=== PATIENT | male | born 1965 ===

== ENCOUNTER 2025-06-29 15:40 | Outpatient (REF) | payer OTHER, SELFPAY ==
--- NOTE | ~2025-06-29 | MR_ITS ---
EXAMINATION: MR BRAIN WITHOUT THEN WITH IV CONTRAST HISTORY: NUMBNESS, MIGRAINE TECHNIQUE: Sagittal T1 and FLAIR, and axial T1, FLAIR, T2, gradient echo, and diffusion weighted MR images of the brain were obtained. Subsequently, axial, and coronal T1-weighted images were obtained after the administration of intravenous gadolinium. 9 mL Gadavist was administered. COMPARISON: There are no prior studies available for comparison. FINDINGS: The pituitary is normal in size. The cerebellar tonsils are normally located. A few scattered periventricular and subcortical white matter hyperintensities are noted on the FLAIR and T2-weighted images which are nonspecific. Noel/white differentiation is otherwise normal. There is no mass effect or midline shift. No intra or extra-axial fluid collections are identified. There are no foci of restricted diffusion. There is no abnormal contrast enhancement. Normal vascular flow voids are noted in the basilar and carotid arteries. There are polyps versus mucous retention cysts in the bilateral maxillary sinuses. There is mucosal thickening in the bilateral ethmoid sinuses. MR/MR head/brain wo/w con IMPRESSION: Scattered nonspecific white matter hyperintensities which can be seen in the setting of migraine. Differential diagnostic considerations include small vessel ischemic disease, Lyme disease, vasculitis, and demyelinating disease. Electronically signed by: Hans Barnett MD 06/30/2025 07:21 AM EDT
--- OUTSIDE RECORDS SUMMARY | 2025-06-29 15:43 | XMS_ITS | Clinical Summary ---
Author Organization [address] [place] [address] [place] [phone] Phone Care Team Providers Care Planer Feeder Name Role Phone Rebeca Hernandez MD Primary Care Provider Allergies Active Allergy Reactions Criticality Noted Date Comments Shellfish Derived Anaphylaxis High 01/07/2021 Medications blood-glucose meter kit 1 Kit by Does not apply route daily. 09/14/20 23 Active FREESTYLE LANCETS MISC 1 Each by Does not apply route daily. 09/14/20 23 Active blood sugar diagnostic (FreeStyle Lite Strips) test strip 1 Each by In Vitro route daily. 09/14/20 23 Active WHEAT DEXTRIN ORAL Take 4 g by mouth daily. 08/27/20 23 Active cholecalcifero l (VITAMIN D-3) 1,250 mcg (50,000 unit) capsule TAKE 1 CAPSULE BY MOUTH ONE TIME PER WEEK 02/02/20 23 Active EPINEPHrine (EpiPen 2-Benjamín) 0.3 mg/0.3 mL injection Inject 1 Device as directed as needed (anaphylaxis) . Use as directed 01/07/20 21 Active fluticasone propionate (FLONASE) 50 mcg/actuation nasal spray 2 Sprays by Nasal route daily. 11/03/20 21 Active hydrocortisone 2.5 % cream Apply locally twice a day 08/15/20 22 Active tamsulosin (FLOMAX) 0.4 mg 24 hr capsule Take 1 Capsule by mouth daily. Take 30 mins after same meal every day. 04/24/20 23 Active ketoconazole (NIZORAL) 2 % cream Apply topically 2 (two) times a day. 15 g 3 01/20/20 25 Active valsartan (DIOVAN) 80 mg tablet Take 1 tablet (80 mg total) by mouth 1 (one) time each day. 90 tablet 1 01/20/20 25 Active omeprazole (PriLOSEC) [address] capsule TOME BASSAM CAPSULA TODOS [place]OPEZ 90 capsule 1 03/25/20 25 Active pantoprazole (PROTONIX) 40 mg EC tablet TAKE 1 TABLET BY MOUTH EVERY DAY 90 tablet 06/05/20 25 Active pantoprazole (PROTONIX) 40 mg EC tablet TAKE 1 TABLET BY MOUTH EVERY DAY 90 tablet 04/06/20 25 025 Discontinued Active Problems Problem Noted Date Diagnosed Date Class 1 obesity with body ma ss index (BMI) of 30.0 to 30.9 in adult 02/15/2023 Orbital pain, right 08/18/2021 Sleep apnea 08/18/2021 Syncope, vasovagal 08/18/2021 Allergic reaction to allergen immunotherapy 12/27 Conjunctivitis, allergic, bilateral 01/07/2021 Dermatitis 01/07/2021 Mild intermittent asthma without complication Perennial allergic rhinitis 10/09/2018 HTN (hypertension) 08/15/2018 GERD (gastroesophageal reflux disease) 8 Overview (10/08/2024): H/o chemical gastritis Hyperlipidemia 04/23/2018 Vitamin D deficiency 12/31/2016 Chronic constipation 07/03/2016 Polycythemia 11/09/2015 Encounters Date Type Department Care Team Description 04/06/2025 Telephone Internal Medicine - [address] [phone] Rebeca Hernandez MD [place]: Fax antonio from Last 3 Months Surgical History Surgery Date Site/Laterality Comments BOWEL RESECTION PROCEDURE: HISTORICAL BOWEL RESECTION; COMMENT: hemicolectomy for diverticulitis CHOLECYSTECTOMY PROCEDURE: HISTORICAL CHOLECYSTECTOMY HERNIA REPAIR PROCEDURE: HISTORICAL HERNIA REPAIR/UMB Medical History Medical History Date Comments Chronic constipation 07/03/2016 DX:Chronic constipation GERD (gastroesophageal reflux disease) 8 DX:GERD (gastroesophageal reflux disease); COMMENT: H/o chemical gastritis HTN (hypertension) 08/15/2018 DX:HTN (hyper tension) Hyperlipidemia 04/23/2018 DX:Hyperlipidemi a Polycythemia 11/09/2015 DX:Polycythemia Vitamin D deficiency 12/31/2016 DX:Vitamin D deficiency History of diverticulitis 12/06/2017 DX:His tory of diverticulitis; COMMENT: H/o colectomy 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 8 DX: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, co ntrolled, with complications (CMS/HCC V24, CMS/HCC V28) DX:Diabetes mellitus type 2, controlled, with complications ([facility]) Social History Tobacco Use Types Packs/Day Years Used Date Smoking Tobacco: Never Smokeless Tobacco: Never Alcohol Use Standard Drinks/Week Comments Never 0 (1 standard drink = 0.6 oz pur e alcohol) Sex and Gender Information Value Date Recorded Sex Assigned at Not on file Legal Sex Male 8:02 AM EST Gender Identity Not on file Sexual Orientation Not on file Obstetrics History Last Filed Vital Signs Vital Sign Reading Time Taken Comments Blood Pressure 128/80 03/24/2025 3:43 PM EDT Pulse 62 03/24/2025 3:43 PM EDT Temperature 36.4 C (97.6 F) 03/24/2025 3:43 PM EDT Respiratory Rate - - Oxygen Saturation 98% 03/24/2025 3:43 PM EDT Inhaled Oxygen Concentration - - Weight 93.9 kg (207 lb) 03/24/2025 3:43 PM EDT Height 172.7 cm (5' 8 ) 01/20/2025 3:31 PM EST Body Mass Index 31.47 01/20/2025 3:31 PM EST Plan of Treatment Upcoming Encounters Date Type Department Care Team (Late st Contact Info) Description 07/20/2025 3:30 PM EDT Office Visit Internal Medicine - [place] [address] [facility] [address] [place] [address] Rebeca Hernandez MD [address] [facility] [address] [place] [address] Health Maintenance Due Date Last Done Comments DTaP,Tdap,and Td Vaccines (1 - Tdap) 1984 Pneumococcal Vaccine: 50+ Years (1 of 2 - PCV) 1984 Zoster Vaccines (1 of 2) 2015 Colorectal Cancer Screening: Colonoscopy 11/04/2022 HIV Screening 11/04/2022 Hepatitis C Screening 11/04/2022 Social Influencers of Health Screening 11/04/2022 COVID-19 Vaccine ( season) 2024 11/14/2022, 11/02/2021, 02/18/2021, Additional history exists Depression Screening 11/26/2024 RSV Immunization Adult Patients (1 - Risk 60-74 years 1-dose series) 2025 Influenza Vaccine (#1) 2025 Hypertension/CHF/CAD Annual BMP Blood Test 01/21/2026 01/21/2025, 09/14/2023 Cholesterol Screening (Lipid Panel) 01/21/2030 01/21/2025, 08/16/2022 HIB Vaccines Aged Out No longer eligi ble based on patient's age to complete this topic HPV Vaccines Aged Out No longer eligi ble based on patient's age to complete this topic Hepatitis A Vaccines Aged Out No long er eligible based on patient's age to complete this topic Hepatitis B Vaccines Aged Out No long er eligible based on patient's age to complete this topic IPV Vaccines Aged Out No longer eligi ble based on patient's age to complete this topic MMR Vaccines Aged Out No longer eligi ble based on patient's age to complete this topic Meningococcal ACWY Vaccine Aged Out N o longer eligible based on patient's age to complete this topic Meningococcal B Vaccine Aged Out No l onger eligible based on patient's age to complete this topic RSV Immunization Patients Under 20 months Aged Out No longer eligible based on patient's age to complete this topic Varicella Vaccines Aged Out No longer eligible based on patient's age to complete this topic Procedures Procedure Name Priority Date/Time Associated Diagnosis Comments COMPREHENSIVE METABOLIC PANEL Routine 01/21/2025 10:01 AM EST Rash Primary hypertension Mixed hyperlipidemia LIPID PANEL WITH REFLEX TO DIRECT LDL Routine 01/21/2025 10:01 AM EST Rash Primary hypertension Mixed hyperlipidemia from Last 3 Months or Most Recently Relevant to Health Maintenance Results * (ABNORMAL) Lipid panel with reflex to direct LDL (01/21/2025 10:01 AM EST) [facility] Cholesterol 178 0 - 200 mg/dL LAB CHEMISTRY METHOD 01/21/2025 12:42 PM [facility] Triglycerides 119 0 - 150 mg/dL LAB CHEMISTRY METHOD 01/21/2025 12:42 PM [facility] HDL 49 >=40 mg/dL LAB CHEMISTRY METHOD 01/21/2025 12:42 PM [facility] LDL Calculated 105(H) 0 - 100 mg/dL LAB CHEMISTRY METHOD 01/21/2025 12:42 PM [facility] VLDL Cholesterol Damion 23.8 mg/dL LAB CHEMISTRY METHOD 01/21/2025 12:42 PM [facility] Non HDL Chol. (LDL+VLDL) 129 <145 mg/dL LAB CHEMISTRY METHOD 01/21/2025 12:42 PM [facility] Chol/HDL Ratio 3.6 0.0 - 4.4 LAB CHEMISTRY METHOD 01/21/2025 12:42 PM [facility] Blood Venous blood specimen / Unknown 01/21/2025 10:01 AM EST 01/21/2025 10:53 AM EST us Rebeca Hernandez MD LAB BLOOD ORDERABLES Final Res ult [facility] [address] [place] [address], * Comprehensive metabolic panel (01/21/2025 10:01 AM EST) Sodium 140 133 - 145 mmol/L LAB CHEMISTRY METHOD 01/21/2025 12:42 PM [facility] Potassium 4.5 3.5 - 5.5 mmol/L LAB CHEMISTRY METHOD 01/21/2025 12:42 PM [facility] Chloride 107 96 - 110 mmol/L LAB CHEMISTRY METHOD 01/21/2025 12:42 PM [facility] CO2 28 21 - 32 mmol/L LAB CHEMISTRY METHOD 01/21/2025 12:42 PM [facility] Anion Gap 5 3 - 11 LAB CHEMISTRY METHOD 01/21/2025 12:42 PM [facility] Glucose 95 70 - 100 mg/dL LAB CHEMISTRY METHOD 01/21/2025 12:42 PM [facility] BUN 11 5 - 25 mg/dL LAB CHEMISTRY METHOD 01/21/2025 12:42 PM [facility] Creatinine 0.75 0.70 - 1.30 mg/dL LAB CHEMISTRY METHOD 01/21/2025 12:42 PM [facility] eGFR 104 >=60 mL/min/1. 73m2 LAB CHEMISTRY METHOD 01/21/2025 12:42 PM [facility] Comment:Calculation based on the Chronic Kidney Disease Epidemiology Collaboration (CKD-EPI) equation refit without adjustment for race. BUN/Creatinine Ratio 14.7 LAB CHEMISTRY METHOD 01/21/2025 12:42 PM [facility] Calcium 9.5 8.5 - 10.5 mg/dL LAB CHEMISTRY METHOD 01/21/2025 12:42 PM [facility] AST (SGOT) 20 10 - 42 unit/L LAB CHEMISTRY METHOD 01/21/2025 12:42 PM [facility] ALT (SGPT) 28 10 - 60 unit/L LAB CHEMISTRY METHOD 01/21/2025 12:42 PM [facility] Alkaline Phosphatase 89 42 - 121 unit/L LAB CHEMISTRY METHOD 01/21/2025 12:42 PM [facility] Total Protein 7.1 6.0 - 8.0 g/dL LAB CHEMISTRY METHOD 01/21/2025 12:42 PM [facility] Albumin 3.7 3.2 - 5.0 g/dL LAB CHEMISTRY METHOD 01/21/2025 12:42 PM [facility] Total Bilirubin 0.6 0.0 - 1.4 mg/dL LAB CHEMISTRY METHOD 01/21/2025 12:42 PM [facility] Blood Venous blood specimen / Unknown 01/21/2025 10:01 AM EST 01/21/2025 10:53 AM EST Rebeca Hernandez MD LAB BLOOD ORDERABLES Final Res ult [facility] [address] [place] [address], from Last 3 Months or Most Recently Relevant to Health Maintenance Insurance [facility] [employer] Care Teams Planer Feeder Relationship Specialty Start Date End Date Rebeca Hernandez MD [address] [phone] PCP - General Internal Medicine 10/02/18
== END 2025-06-29 15:41 | disposition home or self-care (01) ==
LOC: HO.MRI 15:40
PROVIDERS: PCP Internal Medicine; Visit Provider Psychiatry & Neurology Neurology
DX: R20.0 Anesthesia of skin (principal); G43.909 Migraine, unspecified, not intractable, without status migrainosus
CPT/HCPCS: 70553; A9585

== ENCOUNTER → 2025-06-29 15:54 | Outpatient (BNV) | payer OTHER, SELFPAY | PROVIDERS: PCP Internal Medicine; Visit Provider Radiology Diagnostic Radiology | DX: R90.82 White matter disease, unspecified (principal) | CPT/HCPCS: 70553 ==

== ENCOUNTER 2025-07-16 15:13 | Outpatient (AMB) | payer OTHER, SELFPAY ==
--- OUTSIDE RECORDS SUMMARY | 2025-07-16 15:14 | XMS_ITS | Clinical Summary ---
Author Organization [address] [place] [address] [place] [phone] Phone Care Team Providers Care Outboard Motorboat Operator Name Role Phone Rebeca Hernandez MD Primary Care Provider [phone] Allergies Active Allergy Reactions Criticality Noted Date Comments Shellfish Derived Anaphylaxis High 01/07/2021 Medications blood-glucose meter kit 1 Kit by Does not apply route daily. 3 Active FREESTYLE LANCETS MISC 1 Each by Does not apply route daily. 3 Active blood sugar diagnostic (FreeStyle Lite Strips) test strip 1 Each by In Vitro route daily. 3 Active WHEAT DEXTRIN ORAL Take 4 g by mouth daily. 3 Active cholecalciferol (VITAMIN D-3) 1,250 mcg (50,000 unit) capsule TAKE 1 CAPSULE BY MOUTH ONE TIME PER WEEK 3 Active EPINEPHrine (EpiPen 2-Benjamín) 0.3 mg/0.3 mL injection Inject 1 Device as directed as needed (anaphylaxis). Use as directed 1 Active fluticasone propionate (FLONASE) 50 mcg/actuation nasal spray 2 Sprays by Nasal route daily. 1 Active hydrocortisone 2.5 % cream Apply locally twice a day 2 Active tamsulosin (FLOMAX) 0.4 mg 24 hr capsule Take 1 Capsule by mouth daily. Take 30 mins after same meal every day. 3 Active ketoconazole (NIZORAL) 2 % cream Apply topically 2 (two) times a day. 15 g 3 5 Active valsartan (DIOVAN) 80 mg tablet Take 1 tablet (80 mg total) by mouth 1 (one) time each day. 90 tablet 1 5 Active omeprazole (PriLOSEC) [address] capsule TOME BASSAM CAPSULA TODOS [place] 90 capsule 1 5 Active pantoprazole (PROTONIX) 40 mg EC tablet TAKE 1 TABLET BY MOUTH EVERY DAY 90 tablet 5 Active Active Problems Problem Noted Date Diagnosed Date [...] deficiency 12/31/2016 Chronic constipation 07/03/2016 Polycythemia 11/09/2015 Surgical History Surgery Date Site/Laterality Comments BOWEL [...] DX:Diabetes mellitus type 2, controlled, with complications (HCC) Social History Tobacco Use Types Packs/Day Years [...] PM EDT Office Visit Internal Medicine - [place] [address] [facility] [address] [place] [address] Rebeca Hernandez MD [address] [facility] [address] [place] [address] Health Maintenance Due Date Last Done Comments DTaP,Tdap,and Td Vaccines (1 - Tdap) 1984 Pneumococcal Vaccine: 50+ Years (1 of 2 - PCV) 1984 Zoster Vaccines (1 of 2) 2015 Colorectal Cancer Screening: Colonoscopy 11/04/2022 HIV Screening 11/04/2022 Hepatitis C Screening 11/04/2022 Social Influencers of Health Screening 11/04/2022 COVID-19 Vaccine ( - season) 2024 11/14/2022, 11/02/2021, 02/18/2021, Additional history [...] to direct LDL (01/21/2025 10:01 AM EST) [facility] Cholesterol 178 0 - 200 mg/dL LAB CHEMISTRY METHOD 01/21/2025 12:42 PM EST [facility] Triglycerides 119 0 - 150 mg/dL LAB CHEMISTRY METHOD 01/21/2025 12:42 PM EST [facility] HDL 49 >=40 mg/dL LAB CHEMISTRY METHOD 01/21/2025 12:42 PM EST [facility] LDL Calculated 105(H) 0 - 100 mg/dL LAB CHEMISTRY METHOD 01/21/2025 12:42 PM [facility] VLDL Cholesterol Damion 23.8 mg/dL LAB CHEMISTRY METHOD 01/21/2025 12:42 PM [facility] Non HDL Chol. (LDL+VLDL) 129 <145 mg/dL LAB CHEMISTRY METHOD 01/21/2025 12:42 PM [facility] Chol/HDL Ratio 3.6 0.0 - 4.4 LAB CHEMISTRY METHOD 01/21/2025 12:42 PM [facility] Blood Venous blood specimen / Unknown 01/21/2025 10:01 AM EST 01/21/2025 10:53 AM EST us Rebeca Hernandez MD LAB BLOOD ORDERABLES Final Res ult [facility] [address] [place] [address], * Comprehensive metabolic panel (01/21/2025 10:01 AM EST) Sodium 140 133 - 145 mmol/L LAB CHEMISTRY METHOD 01/21/2025 12:42 PM [facility] Potassium 4.5 3.5 - 5.5 mmol/L LAB CHEMISTRY METHOD 01/21/2025 12:42 PM [facility] Chloride 107 96 - 110 mmol/L LAB CHEMISTRY METHOD 01/21/2025 12:42 PM [facility] CO2 28 21 - 32 mmol/L LAB CHEMISTRY METHOD 01/21/2025 12:42 PM [facility] Anion Gap 5 3 - 11 LAB CHEMISTRY METHOD 01/21/2025 12:42 PM [facility] Glucose 95 70 - 100 mg/dL LAB CHEMISTRY METHOD 01/21/2025 12:42 PM [facility] BUN 11 5 - 25 mg/dL LAB CHEMISTRY METHOD 01/21/2025 12:42 PM [facility] Creatinine 0.75 0.70 - 1.30 mg/dL LAB CHEMISTRY METHOD 01/21/2025 12:42 PM [facility] eGFR 104 >=60 mL/min/1. 73m2 LAB CHEMISTRY METHOD 01/21/2025 12:42 PM [facility] Comment:Calculation based on the Chronic Kidney Disease Epidemiology Collaboration (CKD-EPI) equation refit without adjustment for race. BUN/Creatinine Ratio 14.7 LAB CHEMISTRY METHOD 01/21/2025 12:42 PM [facility] Calcium 9.5 8.5 - 10.5 mg/dL LAB CHEMISTRY METHOD 01/21/2025 12:42 PM [facility] AST (SGOT) 20 10 - 42 unit/L LAB CHEMISTRY METHOD 01/21/2025 12:42 PM [facility] ALT (SGPT) 28 10 - 60 unit/L LAB CHEMISTRY METHOD 01/21/2025 12:42 PM [facility] Alkaline Phosphatase 89 42 - 121 unit/L LAB CHEMISTRY METHOD 01/21/2025 12:42 PM [facility] Total Protein 7.1 6.0 - 8.0 g/dL LAB CHEMISTRY METHOD 01/21/2025 12:42 PM [facility] Albumin 3.7 3.2 - 5.0 g/dL LAB CHEMISTRY METHOD 01/21/2025 12:42 PM [facility] Total Bilirubin 0.6 0.0 - 1.4 mg/dL LAB CHEMISTRY METHOD 01/21/2025 12:42 PM [facility] Blood Venous blood specimen / Unknown 01/21/2025 10:01 AM EST 01/21/2025 10:53 AM EST us Rebeca Hernandez MD LAB BLOOD ORDERABLES Final Res ult [facility] [address] [place] [address], from Last 3 Months or Most Recently Relevant to Health Maintenance Insurance [facility] [employer] Care Teams Outboard Motorboat Operator Relationship Specialty Start Date End Date Rebeca Hernandez MD [address] [facility] [address] [place] [address] PCP - General Internal Medicine 10/02/18
--- NOTE | 2025-07-16 15:34 | A.OFFVIS_ITS ---
Intake Visit Reasons: AFTER MRI Allergies shellfish derived Allergy (Unknown, Verified 06/19/25 08:03) Unknown HPI Comments Details: The patient is a 60-year-old male presenting with a follow-up after a recent MRI scan conducted for the evaluation of headache concerns. During the conversation, I reviewed the MRI findings which indicate modifications typical of migraine- type headaches, while currently, the patient denies any presence of headache symptoms. The patient's historical discomfort with headaches was noted but no detailed symptomatic discussion such as potential triggers, severity, frequency, or management strategies of previous headache episodes were provided. No associated symptoms or exacerbations have been disclosed during today's visit, with no further discussion on past headache treatment plans. The possibility of conducting a blood test for further investigations was mentioned as a prospective step forward. [facility] Medical History (Updated 07/16/25 @ 15:37 by Papito Costa MD) Migraine aura occurring with and without headache GERD (gastroesophageal reflux disease) Hypertension Migraine Review of Systems Const Details: - Neurological: Denies headaches Physical Exam Neuro Other: Mental Status: Alert and oriented to person, place, and time. Normal attention. Normal spontaneous speech, fluency, and comprehension. No obvious issues with mood and memory. Affect is appropriate. Cranial Nerves: CN II: Visual woodward full to confrontation, visual acuity intact. CN III, IV, : Pupils equal, round, reactive to light and accommodation. Extraocular movements are normal. CN V: Facial sensation is normal. CN VII: Facial movements symmetrical. CN VIII: Hearing intact to bedside conversation is normal. CN IX, X: Palate elevates symmetrically. CN XI: Shoulder shrug and head turn symmetrical. CN XII: Tongue midline without atrophy or fasciculations. Extrapyramidal: Full facial expressions and blinking. No rigidity. Movements are appropriate with no tremor or abnormality. Speech: Normal; no dysarthria or tremor. Assessment & Plan Assessment & Plan (1) Migraine: Comment: MRI brain WO at [facility] in 2024: Minimal WM changes Code(s): G43.909 - Migraine, unspecified, not intractable, without status migrainosus Category: Medical Qualifiers: Migraine type: migraine (< 15 days per month) without aura Status migrainosus presence: without status migrainosus Intractability: not intractable Qualified Code(s): G43.009 - Migraine without aura, not intractable, without status migrainosus (2) Numbness: Comment: NCV/EMG LTUE (IN OFFICE) No significant abnormality noted in this study. 05/07/25 Code(s): R20.0 - Anesthesia of skin Category: Medical Plan Impression: a: Mild headaches, proably of migraine type b: Non specific numbness, which may also be migraine related c: Non specific white matter brain abnormalities, mild Rec: a: Reassurance and education b: ESR, Lyme serology c: PRN f/u Orders: Orders Erythrocyte Sedimentation Rate Today G43.009 - Migraine without aura, not intractable, without status migrainosus Lyme IgG/IgM w/reflex to WB Today G43.009 - Migraine without aura, not intractable, without status migrainosus Coding Level of Care Code Est Pt Level 4 (75397) Diagnoses Migraine without aura and without status migrainosus, not intractable G43.009 Migraine type: migraine (< 15 days per month) without aura Status migrainosus presence: without status migrainosus Intractability: not intractable Numbness R20.0
== END 2025-07-16 15:40 | disposition home or self-care (01) ==
LOC: HO.HSM 15:13
PROVIDERS: PCP Internal Medicine; Visit Provider Psychiatry & Neurology Neurology
DX: G43.009 Migraine without aura, not intractable, without status migrainosus (principal); R20.0 Anesthesia of skin
CPT/HCPCS: 99214

== ENCOUNTER 2025-07-16 15:13 | Outpatient (REF) | payer OTHER, SELFPAY ==
[2025-07-17 09:49] LABS: Lyme Abs Screen <0.90 index
== END 2025-07-16 15:14 | disposition home or self-care (01) ==
LOC: HO.LAB 15:13
PROVIDERS: PCP Internal Medicine; Visit Provider Psychiatry & Neurology Neurology
DX: G43.009 Migraine without aura, not intractable, without status migrainosus (principal); R20.0 Anesthesia of skin
CPT/HCPCS: 36415; 85652; 86617; 86618; 99212